=== PATIENT | male | born 1965 | race Caucasian/White ===

== ENCOUNTER 2019-07-28 14:08 | Outpatient (CLI) | payer OTHER, SELFPAY ==
--- NOTE | ~2019-07-28 | XR_ITS ---
EXAMINATION: HAND-JS ARTHRITIS 3+VIEWS DATE: 07/28/2019 14:58 INDICATION: Osteoarthritis TECHNIQUE: Posteroanterior, lateral, and oblique views of the left and of the right hands as well as a ballcatchers view of both hands were obtained. COMPARISON: None. FINDINGS: Alignment is normal. No fracture. Minimal osteoarthritis characterized by slight nonuniform joint spa ce narrowing and/or tiny marginal osteophytes at several of the predominantly distal interphalangeal joints in both hands. No cortical erosions to suggest an inflammatory arthritis. Soft tissues are unr emarkable. IMPRESSION: 1. 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 IMPRESSION: 1. Minimal bilateral interphalangeal polyarticular osteoarthritis with distal p redominance
--- NOTE | ~2019-07-28 | XR_ITS ---
EXAMINATION: XR lumbar spine min 4V DATE: 07/28/2019 14:58 INDICATION: Unspecified osteoarthritis, unspecified site TECHNIQUE: Anteroposterior, lateral, and bilateral oblique views of the lumbar spine, and cone-down l ateral view of the lumbosacral junction were obtained. COMPARISON: None. FINDINGS: There is no fracture, dislocation, or subluxation. The vertebral body heights and alignment are normal. There is mild loss of intervertebral disc space height at L4-5 and L5-S1. Small degenera tive osteophytes project from the anterior endplates of multiple vertebral bodies. There is moderate facet osteoarthritis of the lower lumbar spine. The bowel gas pattern is normal. Phleboliths are note d in the right pelvis. IMPRESSION: 1. Moderate lumbar spondylosis without acute findings. Reviewed, dictated and finalized at location F.
--- NOTE | ~2019-07-28 | XR_ITS ---
EXAMINATION: XR sacroiliac joints min 3V DATE: 07/28/2019 14:58 INDICATION: Osteoarthritis TECHNIQUE: AP and left and right oblique views of the sacroiliac joints were obtained. COMPARISON: None. FINDINGS: Alignment is normal. No fracture. Mild sacroiliac joint space narrowing, mild on the left and minimal on the right. No erosions or subarticular sclerosis to suggest an inflammatory sacroiliitis. Sacral arches are intact. Bilateral hip joint spaces are normal. Tiny right os acetabulum. IMPRESSION: 1. 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 Reviewed, dictated and finalized at location A.
[2019-07-28 15:15] LABS: Erythrocyte Sedimentation Rate 7 mm/hr (0-20)
[2019-07-28 16:52] LABS: CRP < 0.5 mg/dL (<1.0); Rheumatoid Factor < 8.6 IU/ML (<12); Uric Acid 5.3 mg/dL (3.5-8.5)
[2019-07-30 17:34] LABS: HLA B27 Negative (Negative)
[2019-07-30 20:42] LABS: ANA Cascade Screen Negative (Negative)
[2019-07-31 22:26] LABS: Anti Cyclic Citrullinated Pept <16 Units (<20)
[2019-08-02 21:58] LABS: ANCA Screen Negative (Negative); Myeloperoxidase Ab <1.0 AI (<1.0); Proteinase-3 Ab <1.0 AI (<1.0); S cerevisiae Ab (IgA) 5.8 U (<=20.0)
[2019-08-05 10:09] LABS: Angiotensin Converting Enzyme 59 U/L (9-67)
== END 2019-07-28 14:09 | disposition home or self-care (01) ==
PROVIDERS: PCP Internal Medicine; Visit Provider Internal Medicine
DX: M19.90 Unspecified osteoarthritis, unspecified site (principal); M53.3 Sacrococcygeal disorders, not elsewhere classified; M47.896 Other spondylosis, lumbar region
CPT/HCPCS: 36415; 72110; 72202; 73130; 82164; 84550; 85652; 86021; 86038; 86140; 86200; 86430; 86671; 86812